=== PATIENT | male | born 1950 | race Caucasian/White ===

== ENCOUNTER → 2019-01-31 09:17 | Outpatient (POV) | payer OTHER, SELFPAY ==
[2019-01-31 09:28] VITALS: BP 145/81; PULSE 69; RESP 18; O2SAT 98
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
== END ==
PROVIDERS: PCP Internal Medicine; Visit Provider Clinical Nurse Specialist Family Health
DX: M25.551 Pain in right hip (principal); G89.29 Other chronic pain
CPT/HCPCS: 99202

== ENCOUNTER → 2019-03-14 10:30 | Outpatient (POV) | payer OTHER, SELFPAY ==
[2019-03-14 10:44] VITALS: BP 156/87; PULSE 71; RESP 18; O2SAT 98; BMI 37.9
--- NOTE | 2019-03-14 11:06 | HMH.PAINSOAP ---
[facility] Pain Management SOAP Note Subjective:: Patient is a pleasant 68-year-old white male resents today for follow-up. Patient is doing well. He has a orthopedic visit tomorrow for a hip injection. Patient has been on Flexeril in the past and doing well. Patient would like to refill this. Overall patient just wants to maintain care here he rates his pain a 5 out of 10. ROS General: no recent weight change, no fever, no sleep disturbances Respiratory: no cough, no shortness of air, no recurring pulmonary infections Cardiovascular/Peripheral Vascular: No chest pain, No palpitations, no edema, no shortness of breath. Gastrointestinal: no incontinence, normal bowel movements reported Genitourinary: no incontinence Musculoskeletal: Back pain, hip pain Psychiatric: normal mood/ affect Neurological: [denies weakness in extremities], [denies balance issues] Objective:: Physical Exam General: Alert and oriented x3, no acute distress, pleasant and cooperative, [on room air] Lungs: Resps E/U, Symmetrical chest expansion, Eyes: PERRL Musculoskeletal: Flexion and extension of lumbar spine somewhat guarded secondary to pain, deep tendon reflexes normal, strength in upper and lower extremities [5/5], [abnormal gait noted] Neurological: speech clear, 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 Will call in patient's Flexeril 10 mg [address] p[address] Trujillo has reviewed this note and agrees with this plan of care. This note was dictated using voice recognition software and may contain errors or omissions
--- NOTE | 2019-03-14 11:12 | P.CONS_ITS ---
[facility] Pain Management SOAP Note Subjective:: Patient is a pleasant 68-year-old white male resents today for follow-up. Patient is doing well. He has a orthopedic visit tomorrow for a hip injection. Patient has been on Flexeril in the past and doing well. Patient would like to refill this. Overall patient just wants to maintain care here he rates his pain a 5 out of 10. ROS General: no recent weight change, no fever, no sleep disturbances Respiratory: no cough, no shortness of air, no recurring pulmonary infections Cardiovascular/Peripheral Vascular: No chest pain, No palpitations, no edema, no shortness of breath. Gastrointestinal: no incontinence, normal bowel movements reported Genitourinary: no incontinence Musculoskeletal: Back pain, hip pain Psychiatric: normal mood/ affect Neurological: [denies weakness in extremities], [denies balance issues] Objective:: Physical Exam General: Alert and oriented x3, no acute distress, pleasant and cooperative, [on room air] Lungs: Resps E/U, Symmetrical chest expansion, Eyes: PERRL Musculoskeletal: Flexion and extension of lumbar spine somewhat guarded secondary to pain, deep tendon reflexes normal, strength in upper and lower extremities [5/5], [abnormal gait noted] Neurological: 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 Will call in patient's Flexeril 10 mg [address] p[address] Trujillo has reviewed this note and agrees with this plan of care. This note was dictated using voice recognition software and may contain errors or omissions
== END ==
PROVIDERS: PCP Internal Medicine; Visit Provider Clinical Nurse Specialist Family Health
DX: M51.16 Intervertebral disc disorders with radiculopathy, lumbar region (principal); M25.551 Pain in right hip
CPT/HCPCS: 99212

== ENCOUNTER → 2019-05-15 13:34 | Outpatient (POV) | payer OTHER, SELFPAY ==
[2019-05-15 14:22] VITALS: BP 140/75; PULSE 74; RESP 18; O2SAT 98; BMI 43.5
--- NOTE | 2019-05-15 14:30 | HMH.PAINSOAP ---
[facility] Pain Management SOAP Note Subjective:: Patient is a pleasant 68-year-old white male who presents today for follow-up. He is being treated for low back pain with radiation to right leg and right hip. He says he is doing well. Patient was prescribed Flexeril 10 mg 1 p.o. 3 times daily, says he has been able to tolerate medication 3 times a day. He is decreased his dose down to 1 time a day and says this is been working well for him. Takes this at nighttime and says he does not feel as tired throughout the day. Overall he just wants to maintain his care and the Flexeril, he rates his pain a 6 out of 10 today. ROS General: no recent weight change, no fever, no sleep disturbances Respiratory: no cough, no shortness of air, no recurring pulmonary infections Cardiovascular/Peripheral Vascular: No chest pain, No palpitations, no edema, no shortness of breath. Gastrointestinal: no incontinence, normal bowel movements reported Genitourinary: no incontinence Musculoskeletal: Back pain Psychiatric: normal mood/ affect, [denies depression], [denies anxiety] Neurological: [denies weakness in extremities], [denies balance issues] Objective:: Physical Exam General: Alert and oriented x3, no acute distress, pleasant and cooperative, [on room air] Lungs: Resps E/U, Symmetrical chest expansion, Eyes: PERRL Musculoskeletal: Flexion and extension of bar spine somewhat guarded secondary to pain, deep tendon reflexes normal, strength in upper and lower extremities [5/5], [abnormal gait noted] Neurological: 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 We will give him 2 months worth of medication and schedule him for a follow-up in 2 months. We will reassess his symptoms at that time. He is been instructed to call the office if he has any concerns prior to his next appointment. Marvin #[id number] reviewed and is appropriate. Dr. Trujillo has reviewed this note and agrees with this plan of care. This note was dictated using voice recognition software and may contain errors or omissions
--- NOTE | 2019-05-15 14:33 | P.CONS_ITS ---
[facility] Pain Management SOAP Note Subjective:: Patient is a pleasant 68-year-old white male who presents today for follow-up. He is being treated for low back pain with radiation to right leg and right hip. He says he is doing well. Patient was prescribed Flexeril 10 mg 1 p.o. 3 times daily, says he has been able to tolerate medication 3 times a day. He is decreased his dose down to 1 time a day and says this is been working well for him. Takes this at nighttime and says he does not feel as tired throughout the day. Overall he just wants to maintain his care and the Flexeril, he rates his pain a 6 out of 10 today. ROS General: no recent weight change, no fever, no sleep disturbances Respiratory: no cough, no shortness of air, no recurring pulmonary infections Cardiovascular/Peripheral Vascular: No chest pain, No palpitations, no edema, no shortness of breath. Gastrointestinal: no incontinence, normal bowel movements reported Genitourinary: no incontinence Musculoskeletal: Back pain Psychiatric: normal mood/ affect, [denies depression], [denies anxiety] Neurological: [denies weakness in extremities], [denies balance issues] Objective:: Physical Exam General: Alert and oriented x3, no acute distress, pleasant and cooperative, [on room air] Lungs: Resps E/U, Symmetrical chest expansion, Eyes: PERRL Musculoskeletal: Flexion and extension of bar spine somewhat guarded secondary to pain, deep tendon reflexes normal, strength in upper and lower extremities [5/5], [abnormal gait noted] Neurological: 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 We will give him 2 months worth of medication and schedule him for a follow-up in 2 months. We will reassess his symptoms at that time. He is been instructed to call the office if he has any concerns prior to his next appointment. Marvin #[id number] reviewed and is appropriate. Dr. Trujillo has reviewed this note and agrees with this plan of care. This note was dictated using voice recognition software and may contain errors or omissions
== END ==
PROVIDERS: PCP Internal Medicine; Visit Provider Clinical Nurse Specialist Family Health
DX: M51.16 Intervertebral disc disorders with radiculopathy, lumbar region (principal); M25.551 Pain in right hip
CPT/HCPCS: 99212

== ENCOUNTER → 2019-07-17 13:22 | Outpatient (POV) | payer MEDICARE, SELFPAY ==
[2019-07-17 14:06] VITALS: BP 149/91; PULSE 74; RESP 18; O2SAT 98; BMI 40.2
--- NOTE | 2019-07-17 16:07 | P.CONS_ITS ---
[facility] Pain Management SOAP Note Subjective:: Patient is a very pleasant 68-year-old white male who presents today for follow- up. He is being treated for low back pain with radiation into his right leg and right hip. He rates his pain a 3 out of 10 today. He states he is doing extremely well. He was on Flexeril 10 mg 1 p.o. daily and he states that this helps him significantly. Overall patient does not need any changes in any regimen today. ROS General: no recent weight change, no fever, no sleep disturbances Respiratory: no cough, no shortness of air, no recurring pulmonary infections Cardiovascular/Peripheral Vascular: No chest pain, No palpitations, no edema, no shortness of breath. Gastrointestinal: no incontinence, normal bowel movements reported Genitourinary: no incontinence Musculoskeletal: Back pain, right leg pain Psychiatric: normal mood/ affect Neurological: [denies weakness in extremities], [denies balance issues] Objective:: Physical Exam General: Alert and oriented x3, no acute distress, pleasant and cooperative, [on room air] Lungs: Resps E/U, Symmetrical chest expansion, Eyes: PERRL Musculoskeletal: Flexion and extension of lumbar spine somewhat guarded secondary to pain, deep tendon reflexes normal, strength in upper and lower extremities [5/5], [abnormal gait noted] Neurological: speech clear, supervisor agency appointments equal, no gross sensory deficits Assessment:: Degenerative disc disease lumbar spine with lumbar radiculopathy and right hip pain Plan:: We will continue the patient on his Flexeril 10 mg 1 p.o. daily. We will see him back in 3 months reassess his symptoms at that time is been instructed to call the office if he has any issues prior to his next appointment. Dr. Trujillo has reviewed this note and agrees with this plan of care. This note was dictated using voice recognition software and may contain errors or omissions Pain Management Hx Components *Have you ever received a pneumonia vaccine?: No *Have you received a flu vaccine this season?: No - *Social History *Occupational Status:: other *Travel in the last 8 weeks: None
== END ==
PROVIDERS: PCP Clinical Nurse Specialist Family Health; Visit Provider Clinical Nurse Specialist Family Health
DX: M51.16 Intervertebral disc disorders with radiculopathy, lumbar region (principal); M25.551 Pain in right hip
CPT/HCPCS: 99212

== ENCOUNTER → 2019-10-16 13:11 | Outpatient (POV) | payer MEDICARE, SELFPAY ==
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
== END ==
PROVIDERS: PCP Internal Medicine; Visit Provider Clinical Nurse Specialist Family Health
DX: M25.551 Pain in right hip (principal); M46.1 Sacroiliitis, not elsewhere classified; M51.36 Other intervertebral disc degeneration, lumbar region; Z79.899 Other long term (current) drug therapy
CPT/HCPCS: 99212; 99213

== ENCOUNTER 2019-11-22 16:27 | Observation (INO) ==
[2019-11-22 19:07] LABS: Basophils % 0.2 % (0.1-2.0); Eosinophils # 0.1 K/mm3 (0.0-0.4); Eosinophils % 0.8 % (0.1-12.0); Hematocrit 44.3 % (42.0-52.0); Lymphocytes # 1.1 K/mm3 (0.7-4.5); Lymphocytes % 12.5 % (10-50); Mean Corpuscular HGB Conc 33.7 g/dL (31.8-35.4); Mean Platelet Volume 8.1 fl (7.4-10.4); Monocytes # 0.3 K/mm3 (0.1-1.0); Monocytes % 3.2 % (1.7-9.3); Neutrophils % 83.2 % (37.0-80.0); Platelet Count 214 K/mm3 (142-424); Red Blood Count 5.28 M/mm3 (4.60-6.20); Red Cell Distribution Width 14.4 % (11.5-17.5); White Blood Count 8.4 K/mm3 (4.8-10.8)
[2019-11-22 19:15] LABS: Albumin Level 3.8 gm/dL (3.4-5.0); Anion Gap 10.3 mEq/L (5-15); Bilirubin,Total 0.7 mg/dL (0.2-1.0); Calcium 9.3 mg/dL (8.5-10.1); Globulin 3.9 gm/dl (1.3-3.2); Total Protein,Serum 7.7 gm/dL (6.4-8.2)
--- NOTE | 2019-11-22 23:26 | Emergency Department Note ---
ED Disposition Clinical Impression: Obesity (BMI 30-39.9), Hyponatremia, Diabetes 1.5, managed as type 2 Abdominal pain Qualifiers: Abdominal location: periumbilical Qualified Code(s): R10.33 - Periumbilical pain Disposition: Admitted as Observation Condition on Discharge: Good - Critical Care Critical Care Time: No Attestation: On 11/22/19, the high probability of a clinically significant, sudden or life threatening deterioration of the following system(s) required my full and direct attention, intervention and personal management. The time I documented below is in addition to time spent performing reported procedures but includes the following listed in this critical care notation. Medical Decision Making - Medical Records Medical records reviewed: Yes: I reviewed the patient's medical records. - Marvin Inquiry Pt receiving controlled substance: No Vital Signs: 11/22/19 16:28 11/22/19 18:14 11/22/19 19:48 Temperature 98.1 F 98.1 F Temperature Source Oral Oral Pulse Rate [Right Radial] 72 72 76 Respiratory Rate 18 18 18 Blood Pressure [Right Arm] 149/101 H 149/101 H 142/94 H Blood Pressure Mean [Right Arm] 117 117 110 02 Sat by Pulse Oximetry 99 99 99 Oxygen Delivery Method Room Air 11/22/19 23:00 Temperature 98.2 F Temperature Source Oral Pulse Rate [Right Radial] 92 H Respiratory Rate 18 Blood Pressure [Right Arm] 139/97 H Blood Pressure Mean [Right Arm] 111 02 Sat by Pulse Oximetry 99 Oxygen Delivery Method Room Air - Lab Data Lab results reviewed: Yes: I reviewed the patient's lab results. Lab Results 11/22/19 18:45: WBC 8.4, RBC 5.28, Hgb 15.0, Hct 44.3, MCV 84.0, MCH 28.3, MCHC 33.7, RDW 14.4, Plt Count 214, MPV 8.1, Neut % (Auto) 83.2 H, Lymph % (Auto) 12.5, [place] % (Auto) 3.2, Eos % (Auto) 0.8, Baso % (Auto) 0.2, Neut # (Auto) 7.0, Lymph # (Auto) 1.1, [place] # (Auto) 0.3, Eos # (Auto) 0.1, Baso # (Auto) 0.0 11/22/19 18:45: Sodium 126 L, Potassium 4.3, Chloride 92 L, Carbon Dioxide 28, Anion Gap 10.3, BUN 13, Creatinine 1.11, Estimated Creat Clear 102, Estimated GFR 66, Est GFR ( Amer) 80, Glucose 187 H, Calcium 9.3, Total Bilirubin 0.7, AST 9 L, ALT 21, Alkaline Phosphatase 104, Total Protein 7.7, Albumin 3.8, Globulin 3.9 H, Albumin/Globulin Ratio 1.0 L, Amylase 34, Lipase 115 11/22/19 18:45: ESR 30 H 11/22/19 22:10: Lactate 0.9 Result diagrams: 11/22/19 18:45 11/22/19 18:45 Orders (Tests/Meds): ED MEDICATIONS Discontinued Medications Generic Name Dose Route Start Last Admin Trade Name Freq PRN Reason Stop Dose Admin Sodium Chloride 1,000 mls @ 999 mls/hr 11/22/19 18:30 11/22/19 18:57 Sod Chlor 0.9% 1000ml Bag IV 11/22/19 19:30 999 mls/hr .Q1H1M CARLEE Administration Ketorolac Tromethamine 30 mg 11/22/19 18:21 11/22/19 18:52 Toradol 30mg/Ml Vial IV 11/22/19 18:22 30 mg ONCE ONE Administration Ondansetron HCl 4 mg 11/22/19 18:21 11/22/19 18:50 Zofran 4mg/2ml Vial IV 11/22/19 18:22 4 mg ONCE ONE Administration Ondansetron HCl 4 mg 11/22/19 19:40 11/22/19 19:41 Zofran 4mg/2ml Vial IV 11/22/19 19:41 4 mg ONCE ONE Administration Promethazine HCl 12.5 mg 11/22/19 21:43 11/22/19 21:45 Phenergan 25mg/Ml 1ml Vial IV 11/22/19 21:44 12.5 mg ONCE ONE Administration Sodium Chloride 25 ml 11/22/19 21:43 Sod Chlor 0.9% 25ml Bag IV 11/22/19 21:44 ONCE ONE ORDERS Category Date Time Status CT abdomen pelvis wo con Stat Cat Scan 11/22/19 18:[address] lumbar spine wo con Stat Cat Scan 11/22/19 18:21 Taken Urinalysis and Microscopic Stat Lab 11/22/19 Ordered Blood Culture Stat Micro 11/22/19 22:10 Received - CT Data CT Scan: Abdomen, Pelvis, L-Spine Time Received: 00:[address] Reviewed: Yes: I have viewed the radiologist's interpretation Preliminary Findings: Abnormal (see report ) Nausea/Vomiting/Diarrhea HPI - General Chief complaint: Abdominal Pain Stated complaint: nausea/ lower back pain Time Seen by Provider: 11/22/19 20:00 Mode of Arrival: Wheelchair Source of Information: Patient, Medical Record Limitations: No Limitations Description of Symptoms (Recalled from ER Triage Doc. by RN): VOMITING SINCE 0500 THIS MORNING. PT STATES THAT 4 DAYS AGO HE STARTED HURTING IN HIS LEFT BACK WHILE CLEANING HOUSE. PT IS UNSURE IF HE HAS A KIDNEY STONE. DENIES DIARRHEA. - History of Present Illness HPI Narrative: pt with ongoing abd pain and nausea which started this am w/o diarrhea and has diabetess - no trauma or fever and no rash MD complaint: nausea, vomiting, abdominal pain Onset (ago): hour(s) Associated Abdominal Pain: Yes Location of pain: periumbilical Associated symptoms: denies other symptoms - Related Data Home Medications Medication Instructions Recorded Confirmed Fesoterodine Fumarate [Toviaz] 8 mg PO DAILY 01/31/19 10/16/19 Gabapentin [Gabapentin 300mg Cap] 300 mg PO DAILY 01/31/19 10/16/19 Linagliptin [Tradjenta 5mg tablet] 5 mg PO DAILY 01/31/19 10/16/19 Montelukast Sodium [Montelukast 10 mg PO DAILY 01/31/19 10/16/19 10mg Tab] Nebivolol HCl [Bystolic] 5 mg PO DAILY 01/31/19 10/16/19 Rosuvastatin Calcium 40 mg PO DAILY 01/31/19 10/16/19 Allergies Allergy/AdvReac Type Severity Reaction Status Date / Time metoclopramide [From REGLAN] Allergy Unknown Verified 11/22/19 18:20 niacin [NIACIN] Allergy Unknown Verified 11/22/19 18:20 Penicillins [PENICILLINS] Allergy Unknown Verified 11/22/19 18:20 [facility] History - Hepatitis A Screen Drug use history?: No High risk sexual behaviors?: No History of sexually transmitted infection?: No Currently employed?: No Childcare worker?: No Do you have indoor plumbing?: Yes Do you have electricity?: Yes Attestation statement:: This patient has been screened for Hepatitis A risk factors. I have reviewed the patient's past medical history: Yes Medical History: Reports:: Diabetes Mellitus Type 2, Hyperlipidemia, Hypertension, Myocardial Infarction Denies:: Diabetes Mellitus Type 1 Other Medical History: Reports: Arthritis Other Surgeries: Yes: Cholecystectomy, Hernia Repair, Other (VASECTOMY) Amputation: No Fractures: No - Social History Smoking Status: Former smoker Alcohol Intake: never Occupational Status: retired Housing: house Family Hx:: Unable to obtain ROS Obtained: Yes All systems reviewed & no additional complaints - Constitutional Constitutional: Denies fever(s) - Eyes Eyes: Denies change in vision - ENT Ears, Nose, Mouth, and Throat: Denies sore throat - Cardiovascular Cardiovascular: Denies chest pain, Denies dyspnea - Respiratory Respiratory: No cough - Gastrointestinal Gastrointestingal: Reports: as per HPI, abdominal pain, nausea, vomiting. Denies: diarrhea - Genitourinary Male Genitourinary: Denies hematuria - Musculoskeletal Musculoskeletal: Denies joint pain, Denies joint swelling - Integumentary/Breasts Skin/Breast: Denies rash - Neurologic Neurologic: Denies seizure-like activity Physical Exam - General General appearance: alert, obese - Head Head exam: normocephalic - Eye Eye exam: Present: PERRL, EOMI. Absent: scleral icterus - ENT ENT exam: Present: mucous membranes dry - Neck Neck exam: Present: trachea midline - Respiratory Respiratory exam: Absent: respiratory distress - Cardiovascular Cardiovascular exam: Present: regular rate, systolic murmur, +S4 - Abdominal Exam Abdominal exam: Present: soft, tenderness. Absent: guarding, rebound, rigidity, pulsatile mass - Extremities Exam Extremities exam: Absent: calf tenderness - Back Exam Back exam: Absent: CVA tenderness (R) - Neurological Exam Neurological exam: Present: alert, oriented X3, CN II-XII intact - Psychiatric Psychiatric exam: Present: normal affect - Skin Skin exam: Absent: rash
[2019-11-23 00:24] LABS: Microscopic, Urine URINE MICROSCOPIC (MICROSCOPIC)
[2019-11-23 01:18] LABS: Appearance,Urine CLEAR (Clear); Bilirubin,Urine Negative (Negative); Blood, Urine Negative (Negative); Color,Urine YELLOW (Yellow); Glucose,Urine (UA) TRACE (Negative); Ketones,Urine Negative (Negative); Leukocyte Esterase,Urine Negative (Negative); PH,Urine 7.5 (5.0-8.5); Protein,Urine Negative (Negative); Specific Gravity, Urine 1.025 (1.005-1.030); Urobilinogen,Urine 0.2 EU/dl (0.2)
[2019-11-23 03:02] LABS: Amorphous Sediment,Urine Trace /lpf
[2019-11-23 06:19] LABS: Basophils % 0.2 % (0.1-2.0); Eosinophils % 0.3 % (0.1-12.0); Hematocrit 39.6 % (42.0-52.0); Lymphocytes # 1.7 K/mm3 (0.7-4.5); Lymphocytes % 15.5 % (10-50); Mean Corpuscular HGB Conc 33.6 g/dL (31.8-35.4); Mean Corpuscular Volume 85.3 fl (80-94); Mean Platelet Volume 8.1 fl (7.4-10.4); Monocytes # 0.4 K/mm3 (0.1-1.0); Neutrophils # 8.6 K/mm3 (1.8-7.8); Neutrophils % 79.9 % (37.0-80.0); Platelet Count 198 K/mm3 (142-424); Red Blood Count 4.64 M/mm3 (4.60-6.20); Red Cell Distribution Width 14.6 % (11.5-17.5); White Blood Count 10.8 K/mm3 (4.8-10.8)
[2019-11-23 06:20] LABS: Hemoglobin 13.3 g/dL (14.1-18.0)
[2019-11-23 06:40] LABS: Anion Gap 13.5 mEq/L (5-15); Blood Urea Nitrogen 11 mg/dL (7-18); Calcium 8.4 mg/dL (8.5-10.1); Carbon Dioxide 27 mmol/L (21.0-32.0); Chloride 94 mmol/L (98-107); Glucose 162 mg/dL (74-106); Sodium 130 mmol/L (136-145)
--- NOTE | 2019-11-23 07:37 | Pharmacy Consult Notes ---
[facility] Pharm[facility] VTE Monitoring - Patient Demographics Admission date: 11/22/19 Report Date: 11/23/19 Time: 07:37 Allergies/Adverse Reactions: Patient Allergies metoclopramide [From REGLAN] Allergy (Unknown, Verified 11/22/19 18:20) niacin [NIACIN] Allergy (Unknown, Verified 11/22/19 18:20) Penicillins [PENICILLINS] Allergy (Unknown, Verified 11/22/19 18:20) Height: 1.7 m Weight: 116.261 kg Patient Problems: Current Active Problems Abdominal pain (Acute) Obesity (BMI 30-39.9) (Acute) Hyponatremia (Acute) Diabetes 1.5, managed as type 2 (Acute) - VTE Risk Labs: VTE Related Lab Results Hgb 13.3 g/dL (14.1-18.0) L D 11/23/19 05:19 Hct 39.6 % (42.0-52.0) L 11/23/19 05:19 Plt Count 198 K/mm3 (142-424) 11/23/19 05:19 BUN 11 mg/dL (7-18) 11/23/19 05:19 Creatinine 0.99 mg/dL (0.70-1.30) 11/23/19 05:19 Estimated Creat Clear 116 mL/min (50-200) 11/23/19 05:19 VTE Score: 6 VTE Risk Level: Moderate Risk - Prophylaxis VTE Prophylaxis Ordered?: Yes Types of VTE Prophylaxis: TEDS Knee High Location of Applied Device: Bilateral Lower Extremeties - VTE Diagnosis Confirmed Treatment or plan recommended: Continue Current Treatment
--- NOTE | 2019-11-23 09:04 | Consult Report ---
*Admission Date: 11/22/19 *Reason for consult:: Abdominal pain and nausea *History of present illness: This is a 69-year-old gentleman seen in consultation from Dr. Lemus for evaluation regarding abdominal pain and nausea. Earlier this week he developed lower back pain that progressed to anterior abdominal pain (mostly lower abdomen/pelvis). He states that he has noticed some "bloating". He also developed nausea without diarrhea. No fevers. Evaluation emergency department revealed no significant laboratory or radiographic anomaly with regard to his abdominal pain. He states he feels "a bit better this morning". Review of Systems - Constitutional Denies chills - Eyes Denies change in vision - ENT Denies difficulty swallowing - *Cardiovascular Denies chest pain - *Respiratory Denies cough - *Gastrointestinal Reports abdominal pain, Reports bloating, Reports nausea - *Genitourinary Denies painful urination - *Musculoskeletal Denies abnormal walking - Integumentary/Breasts Denies bleeding lesions - *Neurologic Denies abnormal movements, Denies seizure-like activity - Psychiatric Denies anxiety - Endocrine Denies cold intolerance - Hematologic/Lymphatic Denies easy bleeding - Allergic/Immunologic Denies hives [facility] History Medical History: Reports:: Diabetes Mellitus Type 2, Hyperlipidemia, Hypertension, Myocardial Infarction Denies:: Diabetes Mellitus Type 1 *Have you ever received a pneumonia vaccine?: No *Have you received a flu vaccine this season?: No Other Medical History: Reports: Arthritis Other Surgeries: Yes: Appendectomy, Cholecystectomy, Hernia Repair, Other (VASECTOMY) Amputation: No Fractures: No - *Social History Educational Level: Completed GED/General Educational Development Smoking Status: Former smoker Tobacco Type: cigarettes # Packs/Day (cigarettes): 2 #Yrs smoked (if former smoker): 17 Alcohol Intake: never *Occupational Status:: retired Housing: house Household Members: none *Travel in the last 8 weeks: None Family Hx:: Unable to obtain Meds Home Medications Medication Instructions Recorded Confirmed Type Fesoterodine Fumarate [Toviaz] 8 mg PO DAILY 01/31/19 11/23/19 History Gabapentin [Gabapentin 300mg Cap] 300 mg PO TID 01/31/19 11/23/19 History Linagliptin [Tradjenta 5mg tablet] 5 mg PO DAILY 01/31/19 11/23/19 History Montelukast Sodium [Montelukast 10 mg PO DAILY 01/31/19 11/23/19 History 10mg Tab] Nebivolol HCl [Bystolic] 5 mg PO DAILY 01/31/19 11/23/19 History Rosuvastatin Calcium 40 mg PO DAILY 01/31/19 11/23/19 History Famotidine 40 mg PO DAILY 11/23/19 11/23/19 History Fluticasone Propionate 2 spry NS DAILY 11/23/19 11/23/19 History Allergies Allergy/AdvReac Type Severity Reaction Status Date / Time metoclopramide [From REGLAN] Allergy Unknown Verified 11/22/19 18:20 niacin [NIACIN] Allergy Unknown Verified 11/22/19 18:20 Penicillins [PENICILLINS] Allergy Unknown Verified 11/22/19 18:20 Exam Vital signs and Labs for Last 24 Hours: Temp Pulse Resp BP Pulse Ox 98.6 F 72 20 165/93 H 96 11/23/19 07:42 11/23/19 07:42 11/23/19 07:42 11/23/19 07:42 11/23/19 07:42 Laboratory Results - last 24 hr 11/22/19 18:45: WBC 8.4, RBC 5.28, Hgb 15.0, Hct 44.3, MCV 84.0, MCH 28.3, MCHC 33.7, RDW 14.4, Plt Count 214, MPV 8.1, Neut % (Auto) 83.2 H, Lymph % (Auto) 12.5, [place] % (Auto) 3.2, Eos % (Auto) 0.8, Baso % (Auto) 0.2, Neut # (Auto) 7.0, Lymph # (Auto) 1.1, [place] # (Auto) 0.3, Eos # (Auto) 0.1, Baso # (Auto) 0.0 11/22/19 18:45: Sodium 126 L, Potassium 4.3, Chloride 92 L, Carbon Dioxide 28, Anion Gap 10.3, BUN 13, Creatinine 1.11, Estimated Creat Clear 102, Estimated GFR 66, Est GFR ( Amer) 80, Glucose 187 H, Calcium 9.3, Total Bilirubin 0.7, AST 9 L, ALT 21, Alkaline Phosphatase 104, Total Protein 7.7, Albumin 3.8, Globulin 3.9 H, Albumin/Globulin Ratio 1.0 L, Amylase 34, Lipase 115 12/25/19 18:45: ESR 30 H 11/22/19 18:45: Troponin I < 0.02 11/22/19 22:10: Lactate 0.9 11/23/19 00:05: Troponin I < 0.02 11/23/19 00:09: Urine Color Yellow, Urine Appearance Clear, Urine pH 7.5, Ur Specific [place] 1.025, Urine Protein Negative, Urine Glucose (UA) Trace, Urine Ketones Negative, Urine Blood Negative, Urine Nitrate Negative, Urine Bilirubin Negative, Urine Urobilinogen 0.2, Ur Leukocyte Esterase Negative, Amorphous Sediment Trace 11/23/19 05:19: WBC 10.8 D, RBC 4.64, Hgb 13.3 L D, Hct 39.6 L, MCV 85.3, MCH 28.7, MCHC 33.6, RDW 14.6, Plt Count 198, MPV 8.1, Neut % (Auto) 79.9, Lymph % (Auto) 15.5, [place] % (Auto) 4.0, Eos % (Auto) 0.3, Baso % (Auto) 0.2, Neut # (Auto) 8.6 H, Lymph # (Auto) 1.7, [place] # (Auto) 0.4, Eos # (Auto) 0.0, Baso # (Auto) 0.0 11/23/19 05:19: Sodium 130 L, Potassium 4.5, Chloride 94 L, Carbon Dioxide 27, Anion Gap 13.5, BUN 11, Creatinine 0.99, Estimated Creat Clear 116, Estimated GFR 75, Est GFR ( Amer) 91, Glucose 162 H, Calcium 8.4 L, Magnesium 1.4, Troponin I < 0.02 11/23/19 06:13: POC Glucose 164 H I & O for Last 24 hours: Intake & Output 11/20/19 11/21/19 11/22/19 11/23/19 11:59 11:59 11:59 11:59 Intake Total 1379 / 1379 Balance 1379 / 1379 Weight 256 lb 5 oz - Constitutional no acute distress - *Routine Respiratory Exam Absent: respiratory distress - *Routine Abdominal Exam Present: soft Results - Labs 11/23/19 05:19 11/23/19 05:19 Laboratory Results - last 24 hr 11/22/19 18:45: WBC 8.4, RBC 5.28, Hgb 15.0, Hct 44.3, MCV 84.0, MCH 28.3, MCHC 33.7, RDW 14.4, Plt Count 214, MPV 8.1, Neut % (Auto) 83.2 H, Lymph % (Auto) 12.5, [place] % (Auto) 3.2, Eos % (Auto) 0.8, Baso % (Auto) 0.2, Neut # (Auto) 7.0, Lymph # (Auto) 1.1, [place] # (Auto) 0.3, Eos # (Auto) 0.1, Baso # (Auto) 0.0 11/22/19 18:45: Sodium 126 L, Potassium 4.3, Chloride 92 L, Carbon Dioxide 28, Anion Gap 10.3, BUN 13, Creatinine 1.11, Estimated Creat Clear 102, Estimated GFR 66, Est GFR ( Amer) 80, Glucose 187 H, Calcium 9.3, Total Bilirubin 0.7, AST 9 L, ALT 21, Alkaline Phosphatase 104, Total Protein 7.7, Albumin 3.8, Globulin 3.9 H, Albumin/Globulin Ratio 1.0 L, Amylase 34, Lipase 115 11/22/19 18:45: ESR 30 H 11/22/19 18:45: Troponin I < 0.02 11/22/19 22:10: Lactate 0.9 11/23/19 00:05: Troponin I < 0.02 11/23/19 00:09: Urine Color Yellow, Urine Appearance Clear, Urine pH 7.5, Ur Specific [place] 1.025, Urine Protein Negative, Urine Glucose (UA) Trace, Urine Ketones Negative, Urine Blood Negative, Urine Nitrate Negative, Urine Bilirubin Negative, Urine Urobilinogen 0.2, Ur Leukocyte Esterase Negative, Amorphous Se diment Trace 11/23/19 05:19: WBC 10.8 D, RBC 4.64, Hgb 13.3 L D, Hct 39.6 L, MCV 85.3, MCH 28.7, MCHC 33.6, RDW 14.6, Plt Count 198, MPV 8.1, Neut % (Auto) 79.9, Lymph % (Auto) 15.5, [place] % (Auto) 4.0, Eos % (Auto) 0.3, Baso % (Auto) 0.2, Neut # (Auto) 8.6 H, Lymph # (Auto) 1.7, [place] # (Auto) 0.4, Eos # (Auto) 0.0, Baso # (Auto) 0.0 11/23/19 05:19: Sodium 130 L, Potassium 4.5, Chloride 94 L, Carbon Dioxide 27, Anion Gap 13.5, BUN 11, Creatinine 0.99, Estimated Creat Clear 116, Estimated GFR 75, Est GFR ( Amer) 91, Glucose 162 H, Calcium 8.4 L, Magnesium 1.4, Troponin I < 0.02 11/23/19 06:13: POC Glucose 164 H - Imaging CT scan - abdomen: report reviewed, image reviewed CT scan - pelvis: report reviewed, image reviewed Assessment and Plan (1) Nausea Current visit: Yes Status: Acute Category: Medical Code(s): R11.0 - Nausea (2) Cyst of pancreas Current visit: Yes Status: Acute Category: Medical Code(s): K86.2 - Cyst of pancreas Ongoing evaluation as outpatient by primary provider (patient aware) (3) Abdominal pain Current visit: Yes Status: Acute Qualifiers: Abdominal location: periumbilical Qualified Code(s): R10.33 - Periumbilical pain Category: Medical Code(s): R10.9 - Unspecified abdominal pain Improving this morning. The patient states that he is "okay to go home". Discharge home with close outpatient follow-up Slowly advance diet at home
--- NOTE | 2019-11-23 09:34 | H&P/Discharge Summary ---
General - General Admission date:: 11/23/19 Discharge date: 11/23/19 *Admission Date: 11/22/19 *Chief complaint: abd pain *History of present illness: 69-year-old male presented to ed with c/o of abdominal pain and nausea. Pt states he had back pain two days before Berny and that progressed to anterior abdominal pain (mostly lower abdomen/pelvis) with vomiting. He states that he has noticed some "bloating" without diarrhea. No fevers. Evaluation emergency department revealed no significant laboratory or radiographic anomaly with regard to his abdominal pain. Pt admitted and surgery consult obtained He states he feels "a bit better this morning". [facility] History I have reviewed the patient's past medical history: Yes Medical History: Reports:: Diabetes Mellitus Type 2, Hyperlipidemia, Hypertension, Myocardial Infarction Denies:: Diabetes Mellitus Type 1 *Have you ever received a pneumonia vaccine?: No *Have you received a flu vaccine this season?: No Other Medical History: Reports: Arthritis Other Surgeries: Yes: Appendectomy, Cholecystectomy, Hernia Repair, Other (VASECTOMY) Amputation: No Fractures: No - *Social History Educational Level: Completed GED/General Educational Development Smoking Status: Former smoker Tobacco Type: cigarettes # Packs/Day (cigarettes): 2 #Yrs smoked (if former smoker): 17 Alcohol Intake: never *Occupational Status:: retired Housing: house Household Members: none *Travel in the last 8 weeks: None Family Hx:: Unable to obtain Review of Systems - Review of Systems Review of systems:: pertinent systems reviewed and negative unless documented below - Constitutional Denies body ache(s), Denies fever(s) - Eyes Denies change in vision - ENT Denies change in voice, Denies nose pain - *Cardiovascular Denies chest pain with activity, Denies rapid, pounding, or irregular heartbeat - *Respiratory Denies cough, Denies excessive phlegm production - *Gastrointestinal Reports abdominal pain, Reports bloating, Reports nausea, Reports vomiting, Denies change in bowel habits, Denies cramping, Denies loose stools - *Genitourinary Denies urinary frequency - *Musculoskeletal Denies body aches - Integumentary/Breasts Denies rash - *Neurologic Denies abnormal walking, Denies abnormal movements, Denies loss of vision, Denies seizure-like activity - Psychiatric Denies anxiety - Endocrine Denies cold intolerance, Denies flushing - Hematologic/Lymphatic Denies enlarged lymph nodes - Allergic/Immunologic Denies itchy eyes Exam Vital signs and Labs for Last 24 Hours: Temp Pulse Resp BP Pulse Ox 98.6 F 72 20 165/93 H 96 11/23/19 07:42 11/23/19 07:42 11/23/19 07:42 11/23/19 07:42 11/23/19 07:42 Laboratory Results - last 24 hr 11/22/19 18:45: WBC 8.4, RBC 5.28, Hgb 15.0, Hct 44.3, MCV 84.0, MCH 28.3, MCHC 33.7, RDW 14.4, Plt Count 214, MPV 8.1, Neut % (Auto) 83.2 H, Lymph % (Auto) 12.5, Chase % (Auto) 3.2, Eos % (Auto) 0.8, Baso % (Auto) 0.2, Neut # (Auto) 7.0, Lymph # (Auto) 1.1, Chase # (Auto) 0.3, Eos # (Auto) 0.1, Baso # (Auto) 0.0 11/22/19 18:45: Sodium 126 L, Potassium 4.3, Chloride 92 L, Carbon Dioxide 28, Anion Gap 10.3, BUN 13, Creatinine 1.11, Estimated Creat Clear 102, Estimated GFR 66, Est GFR ( Amer) 80, Glucose 187 H, Calcium 9.3, Total Bilirubin 0.7, AST 9 L, ALT 21, Alkaline Phosphatase 104, Total Protein 7.7, Albumin 3.8, Globulin 3.9 H, Albumin/Globulin Ratio 1.0 L, Amylase 34, Lipase 115 11/22/19 18:45: ESR 30 H 11/22/19 18:45: Troponin I < 0.02 11/22/19 22:10: Lactate 0.9 11/23/19 00:05: Troponin I < 0.02 11/23/19 00:09: Urine Color Yellow, Urine Appearance Clear, Urine pH 7.5, Ur Specific [place] 1.025, Urine Protein Negative, Urine Glucose (UA) Trace, Urine Ketones Negative, Urine Blood Negative, Urine Nitrate Negative, Urine Bilirubin Negative, Urine Urobilinogen 0.2, Ur Leukocyte Esterase Negative, Amorphous Sediment Trace 11/23/19 05:19: WBC 10.8 D, RBC 4.64, Hgb 13.3 L D, Hct 39.6 L, MCV 85.3, MCH 28.7, MCHC 33.6, RDW 14.6, Plt Count 198, MPV 8.1, Neut % (Auto) 79.9, Lymph % (Auto) 15.5, Chase % (Auto) 4.0, Eos % (Auto) 0.3, Baso % (Auto) 0.2, Neut # (Auto) 8.6 H, Lymph # (Auto) 1.7, Chase # (Auto) 0.4, Eos # (Auto) 0.0, Baso # (Auto) 0.0 11/23/19 05:19: Sodium 130 L, Potassium 4.5, Chloride 94 L, Carbon Dioxide 27, Anion Gap 13.5, BUN 11, Creatinine 0.99, Estimated Creat Clear 116, Estimated GFR 75, Est GFR ( Amer) 91, Glucose 162 H, Calcium 8.4 L, Magnesium 1.4, Troponin I < 0.02 11/23/19 06:13: POC Glucose 164 H I & O for Last 24 hours: Intake & Output 11/20/19 11/21/19 11/22/19 11/23/19 11:59 11:59 11:59 11:59 Intake Total 1379 / 1379 Balance 1379 / 1379 Weight 256 lb 5 oz - Constitutional no acute distress - *Routine HEENT Exam Head: Present: normocephalic Eye: Present: PERRL ENT: Present: mucous membranes moist - *Routine Neck Exam Present: supple. Absent: lymphadenopathy - *Routine Respiratory Exam Present: CTA bilaterally - *Routine Cardiovascular Exam Present: RRR - *Routine Abdominal Exam Present: soft, normoactive bowel sounds. Absent: tenderness - *Routine Extremities Exam Present: full ROM. Absent: cyanosis, clubbing, edema - *Routine Skin Exam Present: warm. Absent: rash - *Routine Neurological Exam Present: alert, oriented X3 - Routine Psychiatric Exam Present: normal affect Hospital Course Hospital Course: ct abd/pelvis:IMPRESSION: Cholecystectomy. Hypodense pancreatic lesion as described. Suggest comparison with old studies. If none available consider MRI of the pancreas. Hypodense pedunculated upper pole lesion. The attenuation is not entirely simple fluid and suggest nonemergent upper pole left renal ultrasound. Pt to follow up with pcp and colleen for work up and monitoring. today pt states he feels much better today and is ok to dc Results Labs on day of discharge: Labs from last 24 hours 11/23/19 11/23/19 11/23/19 06:13 05:19 05:19 WBC 10.8 D RBC 4.64 Hgb 13.3 L D Hct 39.6 L MCV 85.3 MCH 28.7 MCHC 33.6 RDW 14.6 Plt Count 198 MPV 8.1 Neut % (Auto) 79.9 Lymph % (Auto) 15.5 Chase % (Auto) 4.0 Eos % (Auto) 0.3 Baso % (Auto) 0.2 Neut # (Auto) 8.6 H Lymph # (Auto) 1.7 Chase # (Auto) 0.4 Eos # (Auto) 0.0 Baso # (Auto) 0.0 ESR Sodium 130 L Potassium 4.5 Chloride 94 L Carbon Dioxide 27 Anion Gap 13.5 BUN 11 Creatinine 0.99 Estimated Creat Clear 116 Estimated GFR 75 Est GFR ( Amer) 91 Glucose 162 H POC Glucose 164 H Lactate Calcium 8.4 L Magnesium 1.4 Total Bilirubin AST ALT Alkaline Phosphatase Troponin I < 0.02 Total Protein Albumin Globulin Albumin/Globulin Ratio Amylase Lipase Urine Color Urine Appearance Urine pH Ur Specific [place] Urine Protein Urine Glucose (UA) Urine Ketones Urine Blood Urine Nitrate Urine Bilirubin Urine Urobilinogen Ur Leukocyte Esterase Amorphous Sediment 11/23/19 11/23/19 11/22/19 00:09 00:05 22:10 WBC RBC Hgb Hct MCV MCH MCHC RDW Plt Count MPV Neut % (Auto) Lymph % (Auto) Chase % (Auto) Eos % (Auto) Baso % (Auto) Neut # (Auto) Lymph # (Auto) Chase # (Auto) Eos # (Auto) Baso # (Auto) ESR Sodium Potassium Chloride Carbon Dioxide Anion Gap BUN Creatinine Estimated Creat Clear Estimated GFR Est GFR ( Amer) Glucose POC Glucose Lactate 0.9 Calcium Magnesium Total Bilirubin AST ALT Alkaline Phosphatase Troponin I < 0.02 Total Protein Albumin Globulin Albumin/Globulin Ratio Amylase Lipase Urine Color Yellow Urine Appearance Clear Urine pH 7.5 Ur Specific [place] 1.025 Urine Protein Negative Urine Glucose (UA) Trace Urine Ketones Negative Urine Blood Negative Urine Nitrate Negative Urine Bilirubin Negative Urine Urobilinogen 0.2 Ur Leukocyte Esterase Negative Amorphous Sediment Trace 11/22/19 11/22/19 11/22/19 18:45 18:45 18:45 WBC RBC Hgb Hct MCV MCH MCHC RDW Plt Count MPV Neut % (Auto) Lymph % (Auto) Chase % (Auto) Eos % (Auto) Baso % (Auto) Neut # (Auto) Lymph # (Auto) Chase # (Auto) Eos # (Auto) Baso # (Auto) ESR 30 H Sodium 126 L Potassium 4.3 Chloride 92 L Carbon Dioxide 28 Anion Gap 10.3 BUN 13 Creatinine 1.11 Estimated Creat Clear 102 Estimated GFR 66 Est GFR ( Amer) 80 Glucose 187 H POC Glucose Lactate Calcium 9.3 Magnesium Total Bilirubin 0.7 AST 9 L ALT 21 Alkaline Phosphatase 104 Troponin I < 0.02 Total Protein 7.7 Albumin 3.8 Globulin 3.9 H Albumin/Globulin Ratio 1.0 L Amylase 34 Lipase 115 Urine Color Urine Appearance Urine pH Ur Specific [place] Urine Protein Urine Glucose (UA) Urine Ketones Urine Blood Urine Nitrate Urine Bilirubin Urine Urobilinogen Ur Leukocyte Esterase Amorphous Sediment 11/22/19 18:45 WBC 8.4 RBC 5.28 Hgb 15.0 Hct 44.3 MCV 84.0 MCH 28.3 MCHC 33.7 RDW 14.4 Plt Count 214 MPV 8.1 Neut % (Auto) 83.2 H Lymph % (Auto) 12.5 Chase % (Auto) 3.2 Eos % (Auto) 0.8 Baso % (Auto) 0.2 Neut # (Auto) 7.0 Lymph # (Auto) 1.1 Chase # (Auto) 0.3 Eos # (Auto) 0.1 Baso # (Auto) 0.0 ESR Sodium Potassium Chloride Carbon Dioxide Anion Gap BUN Creatinine Estimated Creat Clear Estimated GFR Est GFR ( Amer) Glucose POC Glucose Lactate Calcium Magnesium Total Bilirubin AST ALT Alkaline Phosphatase Troponin I Total Protein Albumin Globulin Albumin/Globulin Ratio Amylase Lipase Urine Color Urine Appearance Urine pH Ur Specific [place] Urine Protein Urine Glucose (UA) Urine Ketones Urine Blood Urine Nitrate Urine Bilirubin Urine Urobilinogen Ur Leukocyte Esterase Amorphous Sediment - Additional Comments rounded with makayla all orders per makayla follow up with colleen and pcp DS: Diagnosis - Discharge Diagnosis (1) Nausea Status: Acute (2) Cyst of pancreas Status: Acute (3) Abdominal pain Status: Acute Discharge Plan - Patient Discharge Instructions ACTIVITY: Continue current activity DIET: continue same diet Patient Instructions: DI for Abdominal Pain-Adult, DI for Hyponatremia - Follow up Plan Follow up with: Vernon Guevara MD [Staff Physician] - 1 week Disposition: Home, Self-[facility] Medications: Home Medications Medication Instructions Recorded Confirmed Type Fesoterodine Fumarate [Toviaz] 8 mg PO DAILY 01/31/19 11/23/19 History Gabapentin [Gabapentin 300mg Cap] 300 mg PO TID 01/31/19 11/23/19 History Linagliptin [Tradjenta 5mg tablet] 5 mg PO DAILY 01/31/19 11/23/19 History Montelukast Sodium [Montelukast 10 mg PO DAILY 01/31/19 11/23/19 History 10mg Tab] Nebivolol HCl [Bystolic] 5 mg PO DAILY 01/31/19 11/23/19 History Rosuvastatin Calcium 40 mg PO DAILY 01/31/19 11/23/19 History Famotidine 40 mg PO DAILY 11/23/19 11/23/19 History Fluticasone Propionate 2 spry NS DAILY 11/23/19 11/23/19 History Prescriptions/Medication Reconciliation: Continued Nebivolol HCl [Bystolic] 5 mg PO DAILY Montelukast Sodium [Montelukast 10mg Tab] 10 mg PO DAILY Linagliptin [Tradjenta 5mg tablet] 5 mg PO DAILY Fesoterodine Fumarate [Toviaz] 8 mg PO DAILY Gabapentin [Gabapentin 300mg Cap] 300 mg PO TID Famotidine 40 mg PO DAILY Rosuvastatin Calcium 40 mg PO DAILY Fluticasone Propionate 2 spry NS DAILY - Problem Reconciliation Problems Reviewed?: Yes
--- NOTE | 2019-11-26 14:33 | Electrocardiograph Report ---
APPROVED REPORT Exam: Resting ECG HR:89 bpm ECG Measurements Heart Rate 89 AXES NJ 212 P 57 QRSd 82 QRS 5 QT 372 T49 QTc 452 <Conclusion> Sinus rhythm with 1st degree AV block Otherwise normal ECG Electronically signed by : Juvencio Quan, 11/26/2019 14:33:28
== END 2019-11-23 10:51 | disposition home or self-care (01) ==
LOC: 2ND 16:27 → ER 16:27 → 2ND 11-23 00:21
PROVIDERS: ADMIT Emergency Medicine; ATTEND Emergency Medicine
CPT/HCPCS: 36415; 71020; 71046; 72131; 74176; 80048; 80053; 81001; 82150; 82962; 83605; 83690; 83735; 84484; 85025; 85651; 87040; 93005; 96365; 96375; 96376; 99284; G0378; J2405

== ENCOUNTER 2020-10-02 22:00 | Emergency (ER) | payer MEDICARE, SELFPAY ==
[2020-10-02 22:12] VITALS: BP 151/119; PULSE 73; RESP 17; TEMP 36.9; O2SAT 98; BMI 29.2
--- NOTE | 2020-10-02 22:24 | HMH.EDWNDL ---
ED Disposition Clinical Impression: Laceration Disposition: Home, Self-Care Condition on Discharge: Good Instructions: DI for Laceration Repair Additional Instructions: suture out 10-12 days and recheck if needed Referrals: Sofia Saez [Primary Care Provider] - - Critical Care Critical Care Time: No Attestation: On 10/02/20, the high probability of a clinically significant, sudden or life threatening deterioration of the following system(s) required my full and direct attention, intervention and personal management. The time I documented below is in addition to time spent performing reported procedures but includes the following listed in this critical care notation. Medical Decision Making - Medical Records Medical records reviewed: Yes: I reviewed the patient's medical records. - Marvin Inquiry Pt receiving controlled substance: No Vital Signs: 10/02/20 22:12 Temperature 98.5 F Temperature Source Oral Pulse Rate [Right Brachial] 73 Respiratory Rate 17 Blood Pressure [Right Arm] 151/119 H Blood Pressure Mean [Right Arm] 129 Blood Pressure Source [Right Arm] Automatic Cuff Blood Pressure Position [Right Arm] Sitting 02 Sat by Pulse Oximetry 98 Oxygen Delivery Method Room Air Wound/Laceration HPI - General Chief Complaint: Wound/Laceration Stated Complaint: AO 10/02 1500 fell injured L arm/r Hand,Knee Time Seen by Provider: 10/02/20 22:20 Mode of Arrival: Family Vehicle Source of Information: Patient, Medical Record Limitations: No Limitations Description of Symptoms (Recalled from ER Triage Doc. by RN): fell earlier this evening at approx 1630; laceration to right hand from fall; s/t to left forearm - History of Present Illness Onset (ago): hour(s) Extremity Location: Right: hand Place: home Patient tetanus UTD: Yes Associated symptoms: none - Related Data Home Medications Medication Instructions Recorded Confirmed Fesoterodine Fumarate [Toviaz] 8 mg PO DAILY 01/31/19 11/23/19 Gabapentin [Gabapentin 300mg Cap] 300 mg PO TID 01/31/19 11/23/19 Linagliptin [Tradjenta 5mg tablet] 5 mg PO DAILY 01/31/19 11/23/19 Montelukast Sodium [Montelukast 10 mg PO DAILY 01/31/19 11/23/19 10mg Tab] Nebivolol HCl [Bystolic] 5 mg PO DAILY 01/31/19 11/23/19 Rosuvastatin Calcium 40 mg PO DAILY 01/31/19 11/23/19 Famotidine 40 mg PO DAILY 11/23/19 11/23/19 Fluticasone Propionate 2 spry NS DAILY 11/23/19 11/23/19 Allergies Allergy/AdvReac Type Severity Reaction Status Date / Time metoclopramide [From REGLAN] Allergy Unknown Verified 11/22/19 18:20 niacin [NIACIN] Allergy Unknown Verified 11/22/19 18:20 Penicillins [PENICILLINS] Allergy Unknown Verified 11/22/19 18:20 [facility] History - Hepatitis A Screen Drug use history?: No High risk sexual behaviors?: No History of sexually transmitted infection?: No Currently employed?: No Childcare worker?: No Do you have indoor plumbing?: Yes Do you have electricity?: Yes Attestation statement:: This patient has been screened for Hepatitis A risk factors. I have reviewed the patient's past medical history: Yes Medical History: Reports:: Diabetes Mellitus Type 2, Hyperlipidemia, Hypertension, Myocardial Infarction Denies:: Diabetes Mellitus Type 1 Other Medical History: Reports: Arthritis Other Surgeries: Yes: Appendectomy, Cholecystectomy, Hernia Repair, Other (VASECTOMY) Amputation: No Fractures: No - Social History Smoking Status: Former smoker Tobacco Type: cigarettes # Packs/Day (cigarettes): 2 #Yrs smoked (if former smoker): 17 Alcohol Intake: never Occupational Status: retired Housing: house Household Members: none Family Hx:: Unable to obtain ROS Obtained: Yes All systems reviewed & no additional complaints Physical Exam - General General appearance: alert - Head Head exam: normocephalic - Eye Eye exam: Present: PERRL, EOMI - ENT ENT exam: Present: mucous membranes moist - Neck Neck exam: Present: trachea mid
[2020-10-02 22:25] VITALS: BP 155/82; PULSE 78; RESP 16; TEMP 36.8; O2SAT 98
== END 2020-10-02 22:34 | disposition home or self-care (01) ==
PROVIDERS: Emergency Provider Emergency Medicine; PCP Internal Medicine
DX: S61.411A Laceration without foreign body of right hand, initial encounter (principal); W01.0XXA Fall on same level from slipping, tripping and stumbling without subsequent striking against object, initial encounter; Y92.019 Unspecified place in single-family (private) house as the place of occurrence of the external cause; I10 Essential (primary) hypertension; E11.9 Type 2 diabetes mellitus without complications; E78.5 Hyperlipidemia, unspecified; I25.2 Old myocardial infarction; Z87.891 Personal history of nicotine dependence; Z79.899 Other long term (current) drug therapy; Z88.0 Allergy status to penicillin
CPT/HCPCS: 12001; 99282

== ENCOUNTER 2022-04-17 01:02 | Emergency (ER) | payer MEDICARE, SELFPAY ==
[2022-04-17 01:04] VITALS: BP 144/85; PULSE 65; RESP 16; TEMP 36.5; O2SAT 97; BMI 40.7
[2022-04-17 01:12] VITALS: BP 144/85; PULSE 70; O2SAT 99; BMI 40.7
--- NOTE | 2022-04-17 01:12 | XR_ITS ---
PROCEDURE INFORMATION: Exam: XR Chest Exam date and time: 04/17/2022 1:37 AM Age: 71 years old Clinical indication: Injury or trauma; Fall; Blunt trauma (contusions or hematomas) TECHNIQUE: Imaging protocol: XR of the chest. Views: 2 views. COMPARISON: CR XR CHEST 2V 11/23/2019 12:07 AM FINDINGS: Lungs: Scattered and bilateral lower lung field airspace opacities likely platelike atelectasis. Pleural spaces: No pneumothorax. Heart/Mediastinum: Unremarkable. No cardiomegaly. Vasculature: Aortic tortuosity. Bones/joints: Spine degenerative changes. IMPRESSION: Non acute findings.
--- NOTE | 2022-04-17 01:12 | CT_ITS ---
PROCEDURE INFORMATION: Exam: CT Head Without Contrast Exam date and time: 04/17/2022 1:36 AM Age: 71 years old Clinical indication: Injury or trauma; Fall; Blunt trauma (contusions or hematomas) TECHNIQUE: Imaging protocol: Computed tomography of the head without contrast. Total images: 395 Radiation optimization: All CT scans at this facility use at least one of these dose optimization techniques: automated exposure control; mA and/or kV adjustment per patient size (includes targeted exams where dose is matched to clinical indication); or iterative reconstruction. COMPARISON: No relevant prior studies available. FINDINGS: Brain: Global brain atrophy and chronic white matter ischemic changes are present. Cerebral ventricles: No ventriculomegaly. Paranasal sinuses: Visualized sinuses are unremarkable. No fluid levels. Mastoid air cells: Visualized mastoid air cells are well aerated. Bones/joints: Unremarkable. No acute fracture. Soft tissues: Unremarkable. Other findings: Senescent calcifications in the basal ganglia. There is incidental incomplete fusion of the C1 arch. IMPRESSION: Global brain atrophy and chronic white matter ischemic changes are present. No acute intracranial abnormality.
--- NOTE | 2022-04-17 01:12 | XR_ITS ---
PROCEDURE INFORMATION: Exam: XR Left Foot Exam date and time: 04/17/2022 1:54 AM Age: 71 years old Clinical indication: Injury or trauma; Fall; Blunt trauma; Foot; Left TECHNIQUE: Imaging protocol: XR Left foot. Views: 3 or more views. COMPARISON: CR [id number] 08/26/2016 2:48 AM FINDINGS: Bones/joints: Plantar calcaneal bone spur. Tibiotalar joint degenerative changes. No acute fracture or dislocation. Soft tissues: Normal. IMPRESSION: No acute findings.
--- NOTE | 2022-04-17 01:12 | XR_ITS ---
PROCEDURE INFORMATION: Exam: XR Bilateral Hips Exam date and time: 04/17/2022 1:48 AM Age: 71 years old Clinical indication: Injury or trauma; Fall; Blunt trauma (contusions or hematomas); Bilateral; Hip TECHNIQUE: Imaging protocol: XR bilateral hips. Views: 2 views of hips with pelvis when performed. COMPARISON: CT ABDOMEN PELVIS WO CON 11/22/2019 7:15 PM FINDINGS: Bones/joints: Radiographs include AP pelvis, and bilateral AP and frogleg hip radiographs. No acute hip fracture or dislocation. Lower lumbar osteo degenerative findings. Bony pelvis intact. Bony cortical density intact. Soft tissues: Unremarkable. Vasculature: Iliofemoral arterial vascular calcification. IMPRESSION: Nonacute findings.
--- NOTE | 2022-04-17 01:12 | CT_ITS ---
PROCEDURE INFORMATION: Exam: CT Cervical Spine Without Contrast Exam date and time: 04/17/2022 1:36 AM Age: 71 years old Clinical indication: Injury or trauma; Fall; Blunt trauma TECHNIQUE: Imaging protocol: Computed tomography images of the cervical spine without contrast. Total images: 0 Radiation optimization: All CT scans at this facility use at least one of these dose optimization techniques: automated exposure control; mA and/or kV adjustment per patient size (includes targeted exams where dose is matched to clinical indication); or iterative reconstruction. COMPARISON: CR XR CHEST 2V 11/23/2019 12:07 AM FINDINGS: Bones/joints: Degeneration related grade 1 anterolisthesis is present at C3-C4. Facet joint degenerative changes are present. Multifocal neural foraminal stenosis, due to degeneration. Discs/Spinal canal/Neural foramina: Mild disc space height loss at C5-C7. Moderate spinal degenerative changes. Lungs: Lung apices are normal. Soft tissues: Unremarkable. Other findings: There is incidental incomplete fusion of the C1 arch. IMPRESSION: Degenerative changes are present without acute osseous injury.
--- NOTE | 2022-04-17 01:17 | XR_ITS ---
PROCEDURE INFORMATION: Exam: XR Thoracic Spine Exam date and time: 04/17/2022 1:40 AM Age: 71 years old Clinical indication: Injury or trauma; Fall; Blunt trauma (contusions or hematomas) TECHNIQUE: Imaging protocol: XR of the thoracic spine. Views: 3 views. COMPARISON: CR XR CHEST 2V 04/17/2022 1:37 AM FINDINGS: Bones/joints: Dextroconvex lower thoracic scoliosis. No acute fracture or dislocation identified. Osteo degenerative changes. Alignment well preserved. Soft tissues: Unremarkable. Vasculature: Aortic tortuosity. IMPRESSION: Nonacute findings.
--- NOTE | 2022-04-17 01:17 | XR_ITS ---
PROCEDURE INFORMATION: Exam: XR Lumbosacral Spine Exam date and time: 04/17/2022 1:46 AM Age: 71 years old Clinical indication: Injury or trauma; Fall; Blunt trauma (contusions or hematomas) TECHNIQUE: Imaging protocol: XR of the lumbosacral spine. Views: 2 or 3 views. COMPARISON: CT LUMBAR SPINE WO CON 11/22/2019 7:20 PM FINDINGS: Bones/joints: Lumbar levoconvex scoliosis. T12-L1, L2-L3 and L3-L4 disc height loss. Prominent especially anterior mid lumbar syndesmophytes ptosis. Facet osteoarthropathy. No acute fracture or jumped facet is visualized. Soft tissues: Unremarkable. Intraperitoneal space: Right upper quadrant surgical clips. Vasculature: Aortoiliac calcifications. IMPRESSION: No significant interval change.
--- NOTE | 2022-04-17 01:42 | PC.NURSE ---
Pt gone to RAD
--- NOTE | 2022-04-17 01:48 | [facility].EDFALL ---
ED Disposition Clinical Impression: Lumbar back pain Concussion without loss of consciousness Qualifiers: Encounter type: initial encounter Qualified Code(s): S06.0X0A - Concussion without loss of consciousness, initial encounter Contusion of hip Qualifiers: Encounter type: initial encounter Laterality: unspecified laterality Qualified Code(s): S70.00XA - Contusion of unspecified hip, initial encounter Disposition: Home, Self-Care Condition on Discharge: Good Instructions: How to Prevent Falls Additional Instructions: see pcp for follow up Referrals: Sofia Saez [Primary Care Provider] - - Critical Care Critical Care Time: No Attestation: On 04/17/22, the high probability of a clinically significant, sudden or life threatening deterioration of the following system(s) required my full and direct attention, intervention and personal management. The time I documented below is in addition to time spent performing reported procedures but includes the following listed in this critical care notation. Medical Decision Making - Medical Records Medical records reviewed: Yes: I reviewed the patient's medical records. - Marvin Inquiry Pt receiving controlled substance: No Vital Signs: 04/17/22 01:04 04/17/22 01:12 04/17/22 02:16 Temperature 97.7 F Temperature Source Oral Pulse Rate 70 63 Pulse Rate [Right] 65 Respiratory Rate 16 Blood Pressure 144/85 H 143/77 H Blood Pressure [Right Arm] 144/85 H Blood Pressure Mean [Right Arm] 104 02 Sat by Pulse Oximetry 97 99 98 Oxygen Delivery Method Room Air Room Air 04/17/22 03:15 Temperature Temperature Source Pulse Rate 62 Pulse Rate [Right] Respiratory Rate Blood Pressure 139/82 Blood Pressure [Right Arm] Blood Pressure Mean [Right Arm] 02 Sat by Pulse Oximetry 96 Oxygen Delivery Method Room Air - Lab Data Lab results reviewed: Yes: I reviewed the patient's lab results. Orders (Tests/Meds): ORDERS Category Date Time Status XR chest 2V Stat Exams 04/17/22 01:12 Taken XR foot LT min 3V Stat Exams 04/17/22 01:12 Taken XR hip BI w PEL1V Stat Exams 04/17/22 01:12 Taken XR lumbar spine 2-3V Stat Exams 04/17/22 01:17 Taken XR thoracic spine 3V Stat Exams 04/17/22 01:17 Taken - Radiology Data #1 Image(s): Chest, T-Spine, L-Spine, Pelvis, Hip, Foot/Toes Image Reviewed: Yes I have reviewed radiologist's interpretation Preliminary Findings: No Fracture Seen - CT Data CT Scan: Head, C-Spine Time Received: 02:[address] Reviewed: Yes: I have viewed the radiologist's interpretation Preliminary Findings: No Fracture Seen Medical Decision Narrative: fall injury but no def fx seen Fall HPI - General Chief Complaint: Fall Stated Complaint: [place] 0030 fell at home, back and leg pain Time Seen by Provider: 04/17/22 01:48 Mode of Arrival: Wheelchair Source of Information: Patient, Relative, Medical Record Limitations: No Limitations Description of Symptoms (Recalled from ER Triage Doc. by RN): pt states was exiting bathroom and slipped in water and fell backwards. pt c/o back,bilateral hip, neck, lt foot pain - History of Present Illness HPI Narrative: trip type fall with head and hip pain - no loc MD complaint: fall Onset (ago): hour(s) Fall from: walking Fall witnessed: no Place fall occurred: home Loss of consciousness: none Prolonged down time: no Symptoms prior to fall: none Context: tripped/slipped Location of injury: head, neck, pelvis Severity: moderate Associated symptoms (after fall): denies - Related Data Home Medications Medication Instructions Recorded Confirmed Fesoterodine Fumarate [Toviaz] 8 mg PO DAILY 01/31/19 11/23/19 Gabapentin [Gabapentin 300mg Cap] 300 mg PO TID 01/31/19 11/23/19 Linagliptin [Tradjenta 5mg tablet] 5 mg PO DAILY 01/31/19 11/23/19 Montelukast Sodium [Montelukast 10 mg PO DAILY 01/31/19 11/23/19 10mg Tab] Nebivolol HCl [Bystolic] 5 mg PO DAILY 01/31/19 1
--- NOTE | 2022-04-17 02:14 | PC.NURSE ---
Pt back from RAD
[2022-04-17 02:16] VITALS: BP 143/77; PULSE 63; O2SAT 98
[2022-04-17 03:15] VITALS: BP 139/82; PULSE 62; O2SAT 96
--- NOTE | 2022-04-17 03:15 | PC.NURSE ---
Pt resting comfortably. Visitor remains at bedside.
[2022-04-17 03:57] VITALS: BP 139/82; PULSE 60; RESP 16; TEMP 36.5; O2SAT 98
== END 2022-04-17 04:10 | disposition home or self-care (01) ==
PROVIDERS: Emergency Provider Emergency Medicine; PCP Internal Medicine
DX: S06.0X0A Concussion without loss of consciousness, initial encounter (principal); S70.00XA Contusion of unspecified hip, initial encounter; W01.0XXA Fall on same level from slipping, tripping and stumbling without subsequent striking against object, initial encounter; Y92.012 Bathroom of single-family (private) house as the place of occurrence of the external cause
CPT/HCPCS: 70450; 71046; 72072; 72100; 72125; 73521; 73630; 99284